=== PATIENT | male | born 1950 ===

== ENCOUNTER 2023-12-19 11:00 | Inpatient (IN) | payer OTHER ==
[~2023-12-19] VITALS: Ht 152.4 cm; Wt 93.0 kg
[2023-12-19] MEDS ORDERED: CARVEDILOL3.125 M1 (13:20)
[2023-12-19] MEDS ORDERED: GLUMETZA500 MG (13:20)
[2023-12-19] MEDS ORDERED: KAPVAY0.1 MG (13:20)
[2023-12-19] MEDS ORDERED: ATORVASTATIN CA10 MG (13:20)
[2023-12-19] MEDS ORDERED: LOSARTAN-HCTZ1 EAC1 (13:20)
[2023-12-19] MEDS ORDERED: TAMS0.4C (13:20)
[2023-12-19] MEDS ORDERED: VITAL-D RX TAB1 EACH (13:21)
[2023-12-19] MEDS ORDERED: ZYLOPRIM100 M1 (13:21)
[2023-12-26] MEDS ORDERED: BUPIVACAINE HCL 30 ML VIAL IJ ONE (12:00)
[2023-12-26] MEDS ORDERED: LIDOCAINE HCL 1%/EPINEPHRINE 20ML VIAL IJ ONE (12:00)
[2023-12-26] MEDS ORDERED: METRONIDAZOLE/SODIUM CHLORIDE 500 MG/100 ML PIGGYBACK IV ONE (12:00)
[2023-12-26] MEDS ORDERED: CEFTRIAXONE SODIUM 2,000 MG VIAL IV ONE (12:00)
[2023-12-26] MEDS ORDERED: MORPHINE SULFATE 4 MG/ML CARTRIDGE IV PRN (14:15)
[2023-12-26] MEDS ORDERED: ONDANSETRON HCL 2 MG/ML VIAL IV PRN (14:15)
[2023-12-26] MEDS ORDERED: RINGERS SOLUTION,LACTATED 1,000 ML IV SCH (14:15)
[2023-12-26] MEDS ORDERED: OxyCODONE HCL 5 MG TABLET (ROXICODONE) PO PRN (14:15)
[2023-12-26] MEDS ORDERED: LOSARTAN POTAS100 MG (15:45)
[2023-12-26] MEDS ORDERED: LEVOTHYROXINE50 MCG (15:45)
[2023-12-26] MEDS ORDERED: VITAMIN D3125 MC1 (15:46)
[2023-12-26] MEDS ORDERED: DEXTROSE 50 % IN WATER 0.5 G/ML VIAL IV PRN (16:30)
[2023-12-26] MEDS ORDERED: ENALAPRILAT DIHYDRATE 1.25 MG/ML VIAL IV PRN (16:30)
[2023-12-26] MEDS ORDERED: INSULIN LISPRO 1,000 UNIT/10 ML UNITS SUBCUTANEO PRN (16:30)
[2023-12-26] MEDS ORDERED: SIMETHICONE 125 MG CAPSULE PO SCH (17:00)
[2023-12-26] MEDS ORDERED: POLYETHYLENE GLYCOL 3350 17 GM BLIST.PACK PO SCH (17:00)
[2023-12-26] MEDS ORDERED: GABAPENTIN 300 MG CAPSULE PO SCH (17:00)
[2023-12-26] MEDS ORDERED: METOCLOPRAMIDE HCL 5 MG/ML VIAL IV SCH (17:00)
[2023-12-26] MEDS ORDERED: CELECOXIB 200 MG CAPSULE PO SCH (17:00)
[2023-12-26] MEDS ORDERED: HYOSCYAMINE SULFATE 0.125 MG TAB.SUBL SL SCH (17:00)
[2023-12-26] MEDS ORDERED: GABAPENTIN 300 MG CAPSULE PO ONE (17:11)
[2023-12-26] MEDS ORDERED: SIMETHICONE 125 MG CAPSULE PO ONE (17:11)
[2023-12-26] MEDS ORDERED: HYOSCYAMINE SULFATE 0.125 MG TAB.SUBL ONE (17:11)
[2023-12-26 19:55] LABS: HEMATOCRIT 41.2 % (39.0-48.0); HEMOGLOBIN 13.7 g/dL (13-16.00); MEAN CELL VOLUME 87.9 fL (80.0-100.00); MEAN CORPUSCULAR HEMOGLOBIN 29.1 pg (27.00-32.0); MEAN CORPUSCULAR HGB CONC 33.1 g/dl (32.0-36.0); PLATELET COUNT 280 K/uL (150-450); RED BLOOD COUNT 4.69 M/uL (4.00-6.00); RED CELL DISTRIBUTION WIDTH 14.6 % (11.5-14.5)
[2023-12-26] MEDS ORDERED: ACETAMINOPHEN 500 MG GEL..CAP PO SCH (20:00)
[2023-12-26] MEDS ORDERED: CLONIDINE HCL 0.1 MG TABLET PO SCH (21:00)
[2023-12-26] MEDS ORDERED: TAMSULOSIN HCL 0.4 MG CAP PO SCH (21:00)
[2023-12-26] MEDS ORDERED: FAMOTIDINE/PF 20 MG/2 ML VIAL IV PUSH SCH (21:00)
[2023-12-27] MEDS ORDERED: LEVOTHYROXINE SODIUM 25 MCG TABLET PO SCH (06:00)
[2023-12-27 07:46] LABS: MEAN CELL VOLUME 88.5 fL (80.0-100.00); MEAN CORPUSCULAR HGB CONC 33.3 g/dl (32.0-36.0); PLATELET COUNT 218 K/uL (150-450); RED BLOOD COUNT 3.39 M/uL (4.00-6.00); RED CELL DISTRIBUTION WIDTH 14.3 % (11.5-14.5)
[2023-12-27 07:47] LABS: MEAN CORPUSCULAR HEMOGLOBIN 29.4 pg (27.00-32.0)
[2023-12-27 08:20] LABS: ALBUMIN 2.7 gm/dL (3.4-5.0); BLOOD UREA NITROGEN 20 mg/dL (7-18); BUN CREA RATIO 17 (7.0-25.0); CALCIUM 8.5 mg/dL (8.5-10.1); CARBON DIOXIDE 29 mEq/L (21-32); CHLORIDE 109 mmol/L (98-107); CREATININE SERUM 1.17 mg/dL (0.70-1.30); GFR 61.11; GLUCOSE FASTING 116 mg/dL (65-100); OSMOLALITY SERUM 268 MOSM/KG (275-295); PHOSPHOROUS 3.8 mg/dL (2.5-4.9); POTASSIUM 3.94 mEq/L (3.5-5.1); SODIUM 132 mmol/L (136-145)
[2023-12-27] MEDS ORDERED: CARVEDILOL 25 MG TABLET PO SCH (09:00)
[2023-12-27] MEDS ORDERED: LOSARTAN/HYDROCHLOROTHIAZIDE 1 UDTAB TABLET PO SCH (09:00)
[2023-12-27] MEDS ORDERED: SOD FERRIC GLUC COMPLX/SUCROSE 62.5 MG in 0.9 % SODIUM CHLORIDE 50 ML IV SCH (09:00)
[2023-12-27] MEDS ORDERED: Cyanocobalamin/Mecobalamin 1 TAB.SL SL SCH (09:00)
[2023-12-27] MEDS ORDERED: ALLOPURINOL 100 MG TABLET PO SCH (09:00)
[2023-12-27] MEDS ORDERED: LACTULOSE 20 G/30 ML BLIST.PACK PO SCH (09:00)
[2023-12-27] MEDS ORDERED: MAGNESIUM SULFATE IN WATER 50 ML IV NR (09:00)
[2023-12-27] MEDS ORDERED: LACTOBACILLUS ACIDOPHILUS 1 CAP CAP PO SCH (09:00)
[2023-12-27] MEDS ORDERED: GABAPENTIN 100 MG CAPSULE PO SCH (17:00)
[2023-12-27] MEDS ORDERED: ENOXAPARIN SODIUM 40 MG/0.4 ML SYRINGE SUBCUTANEO SCH (17:00)
[2023-12-27] MEDS ORDERED: ATORVASTATIN CALCIUM 40 MG TABLET PO SCH (17:00)
[2023-12-27] MEDS ORDERED: GABAPENTIN 300 MG CAPSULE PO SCH (21:00)
[2023-12-28 07:38] LABS: HEMATOCRIT 23.9 % (39.0-48.0); HEMOGLOBIN 8.1 g/dL (13-16.00); MEAN CORPUSCULAR HEMOGLOBIN 29.8 pg (27.00-32.0); RED BLOOD COUNT 2.71 M/uL (4.00-6.00); RED CELL DISTRIBUTION WIDTH 14.4 % (11.5-14.5)
[2023-12-28 07:39] LABS: PLATELET COUNT 137 K/uL (150-450)
[2023-12-28 08:05] LABS: CALCIUM 8.3 mg/dL (8.5-10.1); CREATININE SERUM 0.93 mg/dL (0.70-1.30); GFR 79.64; MAGNESIUM 1.6 mg/dL (1.8-2.4); PHOSPHOROUS 2.4 mg/dL (2.5-4.9); POTASSIUM 3.96 mEq/L (3.5-5.1)
[2023-12-28] MEDS ORDERED: MAGNESIUM SULFATE IN WATER 50 ML IV NR (08:45)
[2023-12-28] MEDS ORDERED: FUROsemide 20 MG/2 ML VIAL IV SCH (08:45)
[2023-12-28] MEDS ORDERED: ENOXAPARIN SODIUM 40 MG/0.4 ML SYRINGE SUBCUTANEO SCH (09:00)
[2023-12-28] MEDS ORDERED: AMINOCAPROIC ACID 250 MG/ML VIAL IV STA (10:27)
[2023-12-28] MEDS ORDERED: POTASSIUM PHOS,M-BASIC-D-BASIC 3 MM/ML VIAL IV NR (12:00)
[2023-12-28] MEDS ORDERED: AMINOCAPROIC ACID 20 MG/ML ML IV SCH (18:00)
[2023-12-29 11:25] LABS: HEMATOCRIT 27.3 % (39.0-48.0); HEMOGLOBIN 9.2 g/dL (13-16.00); MEAN CELL VOLUME 88.1 fL (80.0-100.00); MEAN CORPUSCULAR HEMOGLOBIN 29.6 pg (27.00-32.0); MEAN CORPUSCULAR HGB CONC 33.6 g/dl (32.0-36.0); PLATELET COUNT 181 K/uL (150-450); RED CELL DISTRIBUTION WIDTH 14.5 % (11.5-14.5)
[2023-12-29] MEDS ORDERED: FAMOtidine 20 MG TABLET PO SCH (21:00)
[2023-12-31 10:27] LABS: HEMATOCRIT 33.5 % (39.0-48.0); HEMOGLOBIN 11.1 g/dL (13-16.00); MEAN CELL VOLUME 87.3 fL (80.0-100.00); MEAN CORPUSCULAR HGB CONC 33.2 g/dl (32.0-36.0); PLATELET COUNT 287 K/uL (150-450); RED BLOOD COUNT 3.84 M/uL (4.00-6.00); RED CELL DISTRIBUTION WIDTH 15.1 % (11.5-14.5)
[2023-12-31] MEDS ORDERED: INTEGRA F CAPS1 EACH PO (11:00)
[2023-12-31] MEDS ORDERED: ACETAMINOPHEN500 M2 PO (11:00)
== END 2023-12-31 13:31 | disposition home or self-care (01) | DRG 331 ==
LOC: SURH 11:00 → O/R 12-26 05:45 → SURH 12-26 05:45
PROVIDERS: Internal Medicine Geriatric Medicine; Surgery; ADMIT Colon & Rectal Surgery; ATTEND Colon & Rectal Surgery
PROC: 07BB4ZZ Excision of Mesenteric Lymphatic, Percutaneous Endoscopic Approach (ICD-10-PCS; 2023-12-26)
PROC: 0DTF4ZZ Resection of Right Large Intestine, Percutaneous Endoscopic Approach (ICD-10-PCS; principal; 2023-12-26 15:00)
PROC: 02HV33Z Insertion of Infusion Device into Superior Vena Cava, Percutaneous Approach (ICD-10-PCS; 2023-12-28)
PROC: 30233N1 Transfusion of Nonautologous Red Blood Cells into Peripheral Vein, Percutaneous Approach (ICD-10-PCS; 2023-12-28)
DX: C18.2 Malignant neoplasm of ascending colon (principal); D64.9 Anemia, unspecified; R59.0 Localized enlarged lymph nodes; Z86.010 Personal history of colon polyps